=== PATIENT | female | born 1985 | race Two or more races ===

== ENCOUNTER 2016-11-28 14:06 | Day surgery (SDC) | payer BC ==
[~2016-11-28] VITALS: Ht 157.5 cm; Wt 95.8 kg
--- NOTE | ~2016-11-28 | OR ---
PATIENT'S NAME: RAMEZ DOMINGUEZ [facility] AGE: 31 Y [address] ROOM: [address] [address] LOCATION: [facility] [place] ADMIT DATE: 11/28/2016 OR/Procedure Report DISCHARGE DATE: 11/28/2016 FAMILY PHYSICIAN: Dewey Pitts MD ATTENDING PHYSICIAN: Noe Kaur SURGEON: Noe Kaur MD AREA PLANT MANAGER: DATE OF PROCEDURE: 11/28/2016 PREOPERATIVE DIAGNOSES: 1. Left proximal obstructing ureteral calculus. 2. Left nonobstructing lower pole renal calculus. POSTOPERATIVE DIAGNOSES: 1. Left proximal obstructing ureteral calculus. 2. Left nonobstructing lower pole renal calculus. PROCEDURES PERFORMED: 1. Cystoscopy with manipulation (without removal) of left proximal ureteral stone. 2. Cystoscopy with placement of indwelling left ureteral stent. ANESTHESIA: General endotracheal anesthesia. INDICATION FOR PROCEDURE: The patient is a pleasant 31-year-old female with no prior history of nephrolithiasis, who had presented with severe left flank pain. Ultimately, she was found to have a proximal 5 mm obstructing ureteral calculus but also larger nonobstructing left lower pole renal calculus on CT scan. The patient was not doing well with pain control, with continued severe pain requiring IV narcotics. The patient was explained the risks, benefits, indications, and alternatives to the above procedure and wished to proceed and consented freely. DESCRIPTION OF OPERATION: The patient was brought back to the operating room where she has placed on the OR table in the supine position. A surgical time- out was called where patient identification, surgical site, and procedure were then verified. We also did verify that the patient received an IV Levaquin antibiotic within an hour of beginning the procedure. The patient was then moved and placed in a low lithotomy position after undergoing successful administration of general endotracheal anesthesia. The patient's genital area was then prepped and draped in the usual sterile fashion. I began by carefully advancing the rigid cystoscope easily into the patient's urinary bladder. The patient's urethra was within normal limits. A full pancystoscopy was performed, and her bladder was negative for any bladder tumors, cellules, or diverticula. Her ureteral orifices were noted to be in PATIENT'S NAME: RAMEZ DOMINGUEZ [facility] AGE: 31 Y [address] ROOM: [address] [address] LOCATION: [facility] [place] ADMIT DATE: 11/28/2016 OR/Procedure Report DISCHARGE DATE: 11/28/2016 FAMILY PHYSICIAN: Dewey Pitts MD ATTENDING PHYSICIAN: Noe Kaur their orthotopic location. I then carefully advanced a Sensor guidewire, cannulating the patient's left ureteral orifice and advanced the wire up to the patient's left proximal stone. I then advanced a #5-Burmese open-ended ureteral catheter over the wire up to the proximal stone. I then used a saline flush and was able to manipulate the stone and it did appear that we were able to manipulate the stone back up into the patient's left renal pelvis. I then removed the catheter after replacing the wire and left the wire in place. Now, over the wire, I advanced a 4.8-Burmese multi-length ureteral stent over the wire, deploying it, noting a good curl fluoroscopically in the patient's left renal collecting system as well as a good curl visually in the patient's bladder. I then emptied the patient's bladder, and the patient was then taken out of the lithotomy position, where she was then awoken from general anesthesia, extubated, and transferred to the recovery bed and transported to the recovery room in good condition. The patient did tolerate the procedure well. COMPLICATIONS: None. DRAINS: Indwelling 4.8-Burmese multi-length left ureteral stent. SPECIMENS: None. ESTIMATED BLOOD LOSS: Minimal. FOLLOWUP PLAN: We will plan to have the patient back for followup on 12/10/2016 for left extracorporeal shockwave lithotripsy with possible stent removal at that time. NOE KAUR MD GP/modl /[id number] d: 11/29/16 0036 t: 12/04/16 0835, OPERATIVE SUMMARY
--- NOTE | ~2016-11-28 | HP ---
PATIENT'S NAME: ANGELICA [facility] AGE: 31 Y [address] ROOM: [place] [id number] LOCATION: [facility] [place] ADMIT DATE: 11/28/2016 History & Physical DISCHARGE DATE: 11/28/2016 FAMILY PHYSICIAN: Dewey Pitts MD ATTENDING PHYSICIAN: Noe Maciel DATE OF SERVICE: CHIEF COMPLAINT: Left flank pain. HISTORY OF PRESENT ILLNESS: The patient is a pleasant 31-year-old female with no prior history of nephrolithiasis who had presented with new onset of left flank pain. She was having severe and continued left flank pain with associated vomiting but also diarrhea. She underwent a CT scan today at [facility] consistent with a 5 x 3 mm proximal ureteral calculus as well as a larger nonobstructing 7 to 8 mm left lower pole renal stone. She was not doing well with pain control and she was requiring continued IV narcotics to help control her pain. Her white blood cell count was within normal limits at 8.4, and her serum creatinine level was 0.82. She had a urinalysis which was negative for nitrites and no leukocytes. The patient was transferred for further treatment. PAST MEDICAL HISTORY: 1. History of recurrent urinary tract infection. 2. GERD. PAST SURGICAL HISTORY: 1. History of a partial thyroidectomy. 2. Tonsillectomy. FAMILY HISTORY: The patient denies any known family history of genitourinary abnormalities. SOCIAL HISTORY: The patient works as a after school coordinator. She does drink some alcohol on occasion and is a nonsmoker. ALLERGIES: NO KNOWN DRUG ALLERGIES. MEDICATIONS: See hospitalization medication reconciliation. PATIENT'S NAME: [facility] AGE: 31 Y [address] ROOM: [address] [address] LOCATION: [facility] [place] ADMIT DATE: 11/28/2016 History & Physical DISCHARGE DATE: 11/28/2016 FAMILY PHYSICIAN: Dewey Pitts MD ATTENDING PHYSICIAN: Noe Maciel REVIEW OF SYSTEMS: A full 10-plus point review of systems was performed with pertinent positive and negative findings including in history of present illness. All other systems were reviewed and are otherwise negative. In addition, the patient denies any difficulties with constipation, although she does report some diarrhea. She denies any shortness of breath or cough. She denies any joint pain or palpable lymph nodes. She denies any problems with her vision and no headaches or dizziness. She denies any chest pain or palpitations. PHYSICAL EXAM: VITAL SIGNS: Stable. CONSTITUTIONAL: The patient is in mild discomfort but in no acute distress. HEENT: Extraocular muscles intact. Mucous membranes moist. No drainage per ears and nose. CARDIAC: Good peripheral perfusion. No tachycardia. RESPIRATORY: No audible wheezing or stridor. Respirations do not appear labored. ABDOMEN: Soft, nontender, and nondistended. MUSCULOSKELETAL: Moves all extremities. NEUROLOGIC: No focal deficits noted. PSYCHIATRIC: Answers questions appropriately with normal affect. HEMATOLOGIC: No bruising. No active sites of bleeding. IMAGING: I personally reviewed her CT scan images consistent with findings noted above in history of present illness. IMPRESSION: 1. Left obstructing 5 mm proximal ureteral calculus. 2. Left lower pole nonobstructing renal calculus. PLAN: I had a long discussion today with the patient regarding my findings. Given her continued severe pain requiring IV narcotics, I recommended further treatment with cystoscopy, possible stone manipulation, and placement of indwelling left ureteral stent. We discussed the risks, benefits, indications, and alternatives to above procedure and she wished to proceed and consented freely. After we have placed the stent, I will plan to bring her back at a later date, likely December 10, 2016, for left extracorporeal shockwave lithotripsy as well as possible stent removal at that time. Her questions and concerns were addressed and she has no further at this time. PATIENT'S NAME: RAMEZ DOMINGUEZ [facility] AGE: 31 Y [address] ROOM: [address] [address] LOCATION: [facility] [place] ADMIT DATE: 11/28/2016 History & Physical DISCHARGE DATE: 11/28/2016 FAMILY PHYSICIAN: Dewey Pitts MD ATTENDING PHYSICIAN: Noe Maciel MD GP/modl /[id number] D: [id number] T: [id number] HISTORY & PHYSICAL
[~2016-11-28 14:06] MED LIST: AMBIEN5 MG PO; BIRTH CONTROL; LEVOTHROID (S125 MCG PO; PROAIR HFA8.5 GM INH; RANITIDINE HCL75 MG PO; TOPAMAX50 MG PO; ZOFRAN4 M1 PO
[2016-11-28] MEDS ORDERED: COLACE100 MG PO (19:17)
[2016-11-28] MEDS ORDERED: AZO STANDARD95 MG (19:17)
[2016-11-28] MEDS ORDERED: NORCO 5-325 TA1 EACH PO (19:18)
[2016-11-28] MEDS ORDERED: DITROPAN XL5 MG PO (19:18)
[2016-11-28] MEDS ORDERED: FLOMAX0.4 MG PO (19:19)
== END 2016-11-28 19:45 | disposition disaster alternative care site (69) ==
LOC: GMSU 14:06 → GSDC 14:06
PROC: 0T778DZ Dilation of Left Ureter with Intraluminal Device, Via Natural or Artificial Opening Endoscopic (ICD-10-PCS; principal; 2016-11-28)
DX: N20.2 Calculus of kidney with calculus of ureter (principal); F32.9 Major depressive disorder, single episode, unspecified; J45.909 Unspecified asthma, uncomplicated; K21.9 Gastro-esophageal reflux disease without esophagitis; Z98.890 Other specified postprocedural states; Z79.899 Other long term (current) drug therapy
CPT/HCPCS: C1769; C2617; J1100; J1956; J7120

== ENCOUNTER → 2016-12-10 | Day surgery (SDC) | payer BC ==
[~2016-12-10] VITALS: Ht 157.5 cm; Wt 91.2 kg
[~2016-12-10] MED LIST changes: +AZO STANDARD95 MG; +COLACE100 MG PO; +DITROPAN XL5 MG PO; +FLOMAX0.4 MG PO; +NORCO 5-325 TA1 EACH PO
--- NOTE | ~2016-12-10 | OR ---
PATIENT'S NAME: RAMEZ DOMINGUEZ [facility] AGE: 31 Y [address] ROOM: [place] [address] [place] [facility] [place] DATE: 12/10/2016 OR/Procedure Report DISCHARGE DATE: FAMILY PHYSICIAN: Dewey Pitts MD ATTENDING PHYSICIAN: RAY KAUR SURGEON: Ray Kaur MD DOOR ASSEMBLER: None. DATE OF PROCEDURE: 12/10/2016 PREOPERATIVE DIAGNOSES: 1. Left proximal ureteral calculus. 2. Left lower pole renal calculus. 3. Indwelling left ureteral stent. POSTOPERATIVE DIAGNOSES: 1. Left proximal ureteral calculus. 2. Left lower pole renal calculus. 3. Indwelling left ureteral stent. ANESTHESIA ADMINISTERED: General. OPERATIVE PROCEDURE: 1. Left extracorporeal shockwave lithotripsy of proximal ureteral calculus. 2. Left extracorporeal shock wave lithotripsy of lower pole renal calculus. 3. Cystoscopy with removal of indwelling left ureteral stent. INDICATIONS FOR PROCEDURE: The patient is a pleasant 31-year-old female who had recently presented with left flank pain and was found to have a 5-mm proximal ureteral calculus as well as a 7 -mm left lower pole stone. She underwent initial stent placement on November 28, 2016. The patient returns today for definitive treatment. She was explained the risks, benefits, indications, and alternatives to above procedure and wished to proceed and consented freely. DESCRIPTION OF OPERATION: The patient was brought back to the operating room, where she was placed on the OR table in supine position. A surgical time-out was called for the patient's identification, surgical site, and procedure were then verified. We also did verify that she received an IV Levaquin antibiotic within an hour of beginning the procedure. The patient then underwent successful administration of general anesthesia. The patient was then kept in the supine position where we then brought her proximal left ureteral calculus into focal point using fluoroscopy. We began performing shockwave lithotripsy starting at 14 kilovolts and working up sequentially to 24 kilovolts in energy. Approximately 1800 shocks were delivered to the left proximal ureteral calculus and we did have nice fragmentation by fluoroscopic PATIENT'S NAME: RAMEZ DOMINGUEZ [facility] AGE: 31 Y [address] ROOM: [place] [address] [place] [facility] [place]: 12/10/2016 OR/Procedure Report DISCHARGE DATE: FAMILY PHYSICIAN: Dewey Pitts MD ATTENDING PHYSICIAN: RAY KAUR monitoring. We then turned our attention to the left lower pole renal calculus and began performing shockwave lithotripsy and delivered 1400 shocks to the lower pole stone. We did have nice fragmentation by fluoroscopic monitoring. The patient was then placed in the frog-leg position where her genital area was then prepped and draped in the usual sterile fashion with Hibiclens prep. I began by carefully advancing the flexible cystoscope into the patient's bladder. Her bladder was within normal limits with no obvious bladder tumors or stones noted. I did visualize the indwelling curl of the left ureteral stent and used the stent graspers to grab the distal curl and then removed the stent without any complication. The patient did tolerate the procedure well. The patient was then awoken from general anesthesia, extubated, and transferred to the recovery bed and transported to the recovery room in good condition. COMPLICATIONS: None. SPECIMENS: None. DRAINS: None. FOLLOWUP PLAN: We will plan to have the patient follow back up in Urology Clinic in 3-4 weeks with a plain film KUB. At that point, we will discuss stone prevention moving forward. RAY KARU MD GP/modl /[id number] d: 12/10/16 1748 t: 12/11/16 0803, OPERATIVE SUMMARY
== END | disposition disaster alternative care site (69) ==
LOC: GSDC 07:00
PROC: 0TF4XZZ Fragmentation in Left Kidney Pelvis, External Approach (ICD-10-PCS; principal; 2016-12-10)
PROC: 0TF7XZZ Fragmentation in Left Ureter, External Approach (ICD-10-PCS; 2016-12-10)
PROC: 0TP98DZ Removal of Intraluminal Device from Ureter, Via Natural or Artificial Opening Endoscopic (ICD-10-PCS; 2016-12-10)
DX: N20.2 Calculus of kidney with calculus of ureter (principal); F32.9 Major depressive disorder, single episode, unspecified; J45.909 Unspecified asthma, uncomplicated; K21.9 Gastro-esophageal reflux disease without esophagitis; Z98.890 Other specified postprocedural states; Z79.899 Other long term (current) drug therapy
CPT/HCPCS: J1100; J1956; J2001; J2405; J7120

== ENCOUNTER → 2017-01-02 | Outpatient (CLI) | payer BC | END | disposition disaster alternative care site (69) | LOC: GRAD 12:00 | DX: N20.0 Calculus of kidney (principal); Z96.0 Presence of urogenital implants ==